=== PATIENT | male | born 1965 | race Caucasian/White ===

== ENCOUNTER 2021-04-21 06:38 | Day surgery (SDC) | payer OTHER ==
[~2021-04-21] VITALS: Ht 185 cm; Wt 121.0 kg
[~2021-04-21 06:38] MED LIST: AMLODIPINE BESYL5 MG PO; BUSPIRONE HCL10 MG PO; CLONIDINE HCL0.2 MG PO; CYMBALTA 30MG C30 MG PO; LISINOPRIL40 MG PO; MELOXICAM15 MG PO; NASACORT16.9 ML; NORCO 5-325 TA1 EACH PO; PROTONIX 40MG T40 MG PO; TRAZODONE 100M100 MG PO; ZYRTEC10 M3 PO
[2021-04-21] MEDS ORDERED: CHILDREN'S ASPI81 MG PO (14:01)
[2021-04-21] MEDS ORDERED: FEOSOL325 MG PO (14:01)
== END 2021-04-21 15:26 | disposition home or self-care (01) ==
LOC: FAS 06:38
DX: M19.011 Primary osteoarthritis, right shoulder (principal); I10 Essential (primary) hypertension; J44.9 Chronic obstructive pulmonary disease, unspecified; K21.9 Gastro-esophageal reflux disease without esophagitis; Z88.0 Allergy status to penicillin; Z88.5 Allergy status to narcotic agent
CPT/HCPCS: 73020; 86850; 86900; 86901; 94010; 97162; 97166; 97530-GP; 97535; C1713; C1776; J0171; J1100; J1170; J1885; J2001; J2250; J2405; J2704; J2795; J3010; J7120